=== PATIENT | female | born 1975 | race Caucasian/White ===

== ENCOUNTER 2018-03-13 20:42 | Emergency (ER) | payer OTHER ==
[~2018-03-13 20:42] MED LIST: ANAPROX DS550 MG PO; BIAXIN500 MG PO; CIPRODEX 0.3%-7.5 ML OT; CLINDAMYCIN HC300 MG PO; DARVOCET N 1001 TAB PO; HYDROCODONE BIT1 T11 PO; MACROBID100 M1 PO; MOTRIN600 MG PO; NKHM; PREDNISONE20 MG PO; PROAIR HFA0.09 MG/AC IH; ZITHROMAX250 MG PO
[2018-03-13 20:44] VITALS: BP 138/83
[2018-03-13] MEDS ORDERED: ZESTORETIC 10-1 EACH PO (21:00)
[2018-03-13] MEDS ORDERED: ATORVASTATIN CA10 M1 PO (21:00)
== END 2018-03-13 22:02 | disposition home or self-care (01) ==
LOC: ED 20:42
DX: F41.9 Anxiety disorder, unspecified (principal); R25.1 Tremor, unspecified; R20.0 Anesthesia of skin; Z88.0 Allergy status to penicillin; Z88.8 Allergy status to other drugs, medicaments and biological substances; Z79.899 Other long term (current) drug therapy; Z90.49 Acquired absence of other specified parts of digestive tract

== ENCOUNTER 2018-03-14 10:42 | Emergency (ER) | payer OTHER ==
[~2018-03-14] VITALS: Ht 165.1 cm; Wt 81.6 kg
--- NOTE | ~2018-03-14 | EKG ---
[place], [place] ELECTROCARDIOGRAM REPORT NAME: SIMON BAILEY UNIT #: [id number] ROOM: DOCTOR: EPIPHANY DRAFT REPORT BIRTHDATE: [birth year] [facility] Test Date: 2018-03-14 Test Time: 12:05:15 Pat Name: SIMON BAILEY Department: Room: Gender: F Cotton Header: Shawna Canas : 1975 Requested By: JULES FAUST Order Number: [id number] Reading MD: Drew Mujica MD Measurements Intervals [place] Rate: 93 P: ME: 111 QRS: 75 QRSD: 97 T: 35 QT: 355 QTc: 442 Interpretive Statements Sinus rhythm Short ME interval No previous ECG available for comparison Electronically Signed On 03-14-2018 18:03:02 PST by Drew Mujica MD CM:EKGRPT:ELECTROCARDIOGRAM REPORT [id number] 1803 JULES HUNT DRAFT REPORT JULES FAUST M.D.
[~2018-03-14 10:42] MED LIST changes: +ATORVASTATIN CA10 M1 PO; +ZESTORETIC 10-1 EACH PO
[2018-03-14 12:14] LABS: BASO % 0.3 % (0.0-1.0); EOS # 0.1 10*3/uL (0.0-0.4); EOS % 0.7 % (1.0-4.0); HEMATOCRIT 45.8 % (37.0-47.0); HEMOGLOBIN 14.7 g/dl (12.0-16.0); LYMPH # 2.9 10*3/uL (1.3-4.4); LYMPH % 19.4 % (27.0-41.0); MEAN CELL VOLUME 88.1 fl (81.0-99.0); MEAN CORPUSCULAR HGB 28.3 pg (27.0-31.0); MEAN CORPUSCULAR HGB CONC 32.1 g/dl (33.0-37.0); MEAN PLATELET VOLUME 10.2 fl (9.6-12.3); MONO # 0.8 10*3/uL (0.1-1.0); MONO % 5.2 % (3.0-9.0); NEUT # 11.2 10*3/uL (2.3-7.9); NEUT % 74.1 % (47.0-73.0); PLATELET COUNT AUTOMATED 291 10*3/uL (130-400); RED CELL DISTRI WIDTH 13.2 % (0-14.5); WHITE BLOOD COUNT 15.1 10*3/uL (4.8-10.8)
[2018-03-14 12:28] LABS: ALBUMIN 3.7 gm/dl (3.1-4.5); ALKALINE PHOSPHATASE 105 U/L (45-117); BUN 13 mg/dl (7-24); CHLORIDE 105 mmol/L (98-107); POTASSIUM 3.8 mmol/L (3.5-5.1); SGOT/AST 27 IU/L (3-35); SGPT/ALT 46 U/L (12-78); SODIUM 140 mmol/L (136-145); TOTAL PROTEIN 7.5 gm/dL (6.4-8.2)
[2018-03-14 14:00] VITALS: BP 146/94
== END 2018-03-14 15:05 | disposition home or self-care (01) ==
LOC: ED
PROVIDERS: Emergency Medicine
DX: B34.9 Viral infection, unspecified (principal); F41.9 Anxiety disorder, unspecified; R06.02 Shortness of breath; R42 Dizziness and giddiness; R00.0 Tachycardia, unspecified; Z88.0 Allergy status to penicillin; Z88.8 Allergy status to other drugs, medicaments and biological substances; Z79.899 Other long term (current) drug therapy

== ENCOUNTER 2019-08-17 14:00 | Emergency (ER) | payer OTHER ==
[~2019-08-17] VITALS: Ht 165.1 cm; Wt 90.7 kg
[2019-08-17 14:09] VITALS: BP 165/97
[2019-08-17] MEDS ORDERED: PROVENTIL HFA6.7 GM INH (16:00)
[2019-08-17] MEDS ORDERED: PREDNISONE20 M1 PO (16:00)
== END 2019-08-17 15:52 | disposition home or self-care (01) ==
LOC: ED 14:00
DX: J40 Bronchitis, not specified as acute or chronic (principal); Z20.828 Contact with and (suspected) exposure to other viral communicable diseases; Z79.899 Other long term (current) drug therapy; Z88.0 Allergy status to penicillin; Z88.8 Allergy status to other drugs, medicaments and biological substances

== ENCOUNTER 2020-11-23 10:43 | Emergency (ER) | payer OTHER ==
[~2020-11-23] VITALS: Ht 165.1 cm; Wt 93.0 kg
[~2020-11-23 10:43] MED LIST changes: +PREDNISONE20 M1 PO; +PROVENTIL HFA6.7 GM INH
[2020-11-23 14:23] VITALS: BP 108/63
[2020-11-23] MEDS ORDERED: ZOFRAN4 MG PO (16:40)
== END 2020-11-23 17:20 | disposition home or self-care (01) ==
LOC: ED 10:43
DX: U07.1 COVID-19 (principal); J12.82 Pneumonia due to coronavirus disease 2019; Z88.0 Allergy status to penicillin; Z88.8 Allergy status to other drugs, medicaments and biological substances; Z79.899 Other long term (current) drug therapy

== ENCOUNTER 2021-05-16 19:43 | Emergency (ER) | payer OTHER ==
[~2021-05-16] VITALS: Ht 165.1 cm; Wt 93.4 kg
[~2021-05-16 19:43] MED LIST changes: +ZOFRAN4 MG PO
[2021-05-16 19:52] VITALS: BP 170/106
== END 2021-05-16 21:05 | disposition home or self-care (01) ==
LOC: ED 19:43
DX: S61.012A Laceration without foreign body of left thumb without damage to nail, initial encounter (principal); Z79.899 Other long term (current) drug therapy; Z98.890 Other specified postprocedural states; Z98.51 Tubal ligation status; Z90.49 Acquired absence of other specified parts of digestive tract; Z88.0 Allergy status to penicillin; Z88.8 Allergy status to other drugs, medicaments and biological substances; W45.8XXA Other foreign body or object entering through skin, initial encounter; Y93.89 Activity, other specified; Y92.89 Other specified places as the place of occurrence of the external cause; Y99.8 Other external cause status

== ENCOUNTER 2025-02-09 10:39 | Emergency (ER) | payer BC ==
[~2025-02-09] VITALS: Ht 165.1 cm; Wt 83.0 kg
[~2025-02-09 10:39] MED LIST changes: +METFORMIN HYDR500 MG PO; +VIBRA-TAB100 MG PO
[2025-02-09 10:48] VITALS: BP 175/94
[2025-02-09] MEDS ORDERED: diphenhydrAMINE hydrochloride 50 MG/ML VIAL IV ONE (11:30)
[2025-02-09] MEDS ORDERED: SODIUM CHLORIDE 0.9% 1,000 ML IV ONE (11:30)
[2025-02-09] MEDS ORDERED: Metoclopramide Hydrochloride 10 MG/2 ML VIAL IV ONE (11:30)
[2025-02-09] MEDS ORDERED: ACETAMINOPHEN 325 MG TAB PO ONE (11:30)
[2025-02-09 11:54] LABS: BASO # 0.0 10*3/uL (0.0-0.1); BASO % 0.3 % (0.0-1.0); EOS # 0.0 10*3/uL (0.0-0.4); EOS % 0.3 % (1.0-4.0); MEAN CELL VOLUME 84.6 fl (81.0-99.0); MEAN CORPUSCULAR HGB 27.3 pg (27.0-31.0); MEAN PLATELET VOLUME 10.4 fl (9.6-12.3); MONO # 0.6 10*3/uL (0.1-1.0); MONO % 5.1 % (3.0-9.0); NEUT # 10.0 10*3/uL (2.3-7.9); NEUT % 83.7 % (47.0-73.0); NUCLEATED RED BLOOD CELL 0.0 % (0.0-0.0); NUCLEATED RED BLOOD CELL 0.0 10*3/uL (0.0-0.0); PLATELET COUNT AUTOMATED 205 10*3/uL (130-400); RED CELL DISTRI WIDTH 12.4 % (0-14.5)
[2025-02-09 12:12] LABS: BUN 6 mg/dl (9-23)
[2025-02-09] MEDS ORDERED: ALBUTEROL 8 GM INHALER INH ONE (13:15)
== END 2025-02-09 13:23 | disposition home or self-care (01) ==
LOC: ED 10:39
PROVIDERS: Nurse Practitioner Family
DX: U07.1 COVID-19 (principal); E11.65 Type 2 diabetes mellitus with hyperglycemia; I10 Essential (primary) hypertension; Z87.891 Personal history of nicotine dependence; Z90.49 Acquired absence of other specified parts of digestive tract; Z88.0 Allergy status to penicillin; Z88.8 Allergy status to other drugs, medicaments and biological substances